=== PATIENT | male | born 1990 | race Two or more races ===

== ENCOUNTER 2017-07-04 08:04 | Emergency (ER) | payer MEDICAID ==
[~2017-07-04] VITALS: Ht 165.1 cm; Wt 82.7 kg
[2017-07-04 08:52] LABS: BASOPHIL % 0.3 % (0-2); PLATELET COUNT 257 x10^3mcL (130-400); RED CELL DISTRIBUTION WIDTH 12.8 % (11.5-14.5)
[2017-07-04 08:54] LABS: CALCIUM 8.9 mg/dL (8.5-10.1); CHLORIDE SERUM 104 mmol/L (98-107); CREATININE SERUM 0.9 mg/dL (0.7-1.3); GFR1 > 60 mL/min; GLUCOSE SERUM 77 mg/dL (74-106); POTASSIUM SERUM 4.1 mmol/L (3.5-5.1); SODIUM SERUM 140 mmol/L (136-145)
[2017-07-04 08:59] LABS: ALKALINE PHOSPHATASE 80 U/L (46-116); ALT/SGPT 84 U/L (16-63); AST/SGOT 45 U/L (15-37); BILIRUBIN TOTAL 0.2 mg/dL (0.20-1.00); TOTAL PROTEIN, SERUM 7.2 g/dL (6.4-8.2)
[2017-07-04 10:30] LABS: AMPHETAMINE QUAL UR NONE DETECTED (NEG <=1000)
[2017-07-04 11:31] VITALS: BP 125/63
== END 2017-07-04 11:31 | disposition home or self-care (01) ==
LOC: ED 08:04
PROVIDERS: Emergency Medicine
DX: G40.409 Other generalized epilepsy and epileptic syndromes, not intractable, without status epilepticus (principal); F12.90 Cannabis use, unspecified, uncomplicated; Z88.0 Allergy status to penicillin
CPT/HCPCS: 83880; G0480; J7030

== ENCOUNTER 2017-08-03 04:05 | Emergency (ER) | payer OTHER ==
[2017-08-03 05:12] VITALS: BP 146/77
== END 2017-08-03 05:12 | disposition home or self-care (01) ==
LOC: ED 04:05
DX: T22.211A Burn of second degree of right forearm, initial encounter (principal); X11.8XXA Contact with other hot tap-water, initial encounter; Y93.89 Activity, other specified; Y92.89 Other specified places as the place of occurrence of the external cause; Y99.8 Other external cause status
CPT/HCPCS: 90715